=== PATIENT | female | born 1970 | race Caucasian/White ===

== ENCOUNTER 2016-11-04 10:23 | Observation (INO) | payer BC ==
--- NOTE | 2016-11-04 11:06 | ED ---
General Adult HPI - General Source: patient, RN notes reviewed Mode of arrival: wheelchair Limitations: no limitations <Kavon Mina - Last Filed: 11/04/16 11:04> <Louis Downs - Last Filed: 11/04/16 13:04> - General Chief complaint: Chest Pain Stated complaint: chest pain Time Seen by Provider: 11/04/16 10:51 - History of Present Illness Initial comments: Patient is a 46-year-old female who presents emergency room today with chief complaint of chest pain on and off over the last month. Patient does admit that yesterday she was experiencing a "pressure" and today has been experiencing a "stabbing" type pain to the left side of the chest wall underneath the left breast area. 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 States she had an episode of feeling lightheaded dizzy and vomited. States he is not feeling lightheaded or dizzy today. She states she is expressing a stabbing type pain to the left side of the chest wall. Patient also admits to some pain that radiates into the left arm. She states she's had this on and off as well over the last few weeks. Patient denies any history of heart problems. She does admit to a family history. She denies any other complaints or symptoms. Patient denies any recent fever, chills, shortness of breath, back pain, abdominal pain, nausea or vomiting, numbness or tingling, dysuria or hematuria, constipation or diarrhea, visual changes, or any other complaints. (Kavon Mina) - Related Data Home Medications Medication Instructions Recorded Confirmed Aspirin EC [Ecotrin] 325 mg PO DAILY PRN 11/04/16 11/04/16 Calcium/Magnesium/Zinc 1 tab PO DAILY 11/04/16 11/04/16 [Acdisqh-Ghhiteews-Vkdl Tablet] Ibuprofen [Motrin] 800 mg PO Q6H PRN 11/04/16 11/04/16 Levothyroxine Sodium [Synthroid] 125 mcg PO DAILY 11/04/16 11/04/16 Ubidecarenone [Co Q-10] 100 mg PO DAILY 11/04/16 11/04/16 Allergies Allergy/AdvReac Type Severity Reaction Status Date / Time Sulfa (Sulfonamide Allergy Swelling Verified 11/04/16 11:02 Antibiotics) Review of Systems ROS Other: All systems not noted in ROS Statement are negative. <Kavon Mina - Last Filed: 11/04/16 11:04> ROS Other: All systems not noted in ROS Statement are negative. <HimanshuLouis - Last Filed: 11/04/16 13:04> ROS Statement: Those systems with pertinent positive or pertinent negative responses have been documented in the HPI. Past Medical History Past Medical History: GI Bleed, Thyroid Disorder Additional Past Medical History / Comment(s): abdominal discomfort, recent peggy. leg swelling History of Any Multi-Drug Resistant Organisms: None Reported Past Surgical History: Appendectomy, Cholecystectomy, Hysterectomy Additional Past Surgical History / Comment(s): colonoscopy Past Anesthesia/Blood Transfusion Reactions: No Reported Reaction Past Psychological History: No Psychological Hx Reported Smoking Status: Former smoker Past Alcohol Use History: Rare Additional Past Alcohol Use History / Comment(s): smoked 10 years 1/2 ppd, quit 2006 Past Drug Use History: None Reported - Past Family History Mother Family Medical History: No Reported History <Kavon Mina - Last Filed: 11/04/16 11:04> General Exam Limitations: no limitations <Kavon Mina - Last Filed: 11/04/16 11:04> <Louis Downs - Last Filed: 11/04/16 13:04> - General Exam Comments Initial Comments: General: The patient is awake and alert, in no distress, and does not appear acutely ill. Eye: Pupils are equal, round and reactive to light, extra-ocular movements are intact. No nystagmus. There is normal conjunctiva bilaterally. No signs of icterus. Ears, nose, mouth and throat: There are moist mucous membranes and no oral lesions. Neck: The neck is supple, there is no tenderness or JVD. Cardiovascular: There is a regular rate and rhythm. No murmur, rub or gallop is appreciated. Pain reproduced on palpation of the anterior chest wall. Respiratory: Lungs are clear to auscultation, respirations are non-labored, breath sounds are equal. No wheezes, stridor, rales, or rhonchi. Gastrointestinal: Soft, non-distended, non-tender abdomen without masses or organomegaly noted. There is no rebound or guarding present. No CVA tenderness. Bowel sounds are unremarkable. Musculoskeletal: Normal ROM, no tenderness. Strength 5/5. Sensation intact. Pulses equal bilaterally 2+. Neurological: A&O x 3. CN II-XII intact, There are no obvious motor or sensory deficits. Coordination appears grossly intact. Speech is normal. Skin: Skin is warm and dry and no rashes or lesions are noted. Psychiatric: Cooperative, appropriate mood & affect, normal judgment. (Kavon Mina) Medical Decision Making <Kavon Mina - Last Filed: 11/04/16 11:04> - Lab Data Result diagrams: 11/04/16 10:50 11/04/16 10:50 <Louis Downs - Last Filed: 11/04/16 13:04> - Medical Decision Making Medical decision making. I reviewed the patient's history examine the patient. Reviewed the labs which were all within normal limits as well as a chest x- ray. Patient's history goes back one month which is on-again off-again chest discomfort sometimes a sharp pain sometimes a pressure supplies down her left arm. Occasionally nausea vomiting and sweats. EKG was within normal limits. She was given sublingual nitro with some mild relief. The case discussed with Dr. Velazquez patient be admitted to his service with cardiology consultation. Dr. Downs (Louis Downs) - Lab Data Lab Results 11/04/16 11/04/16 11/04/16 Range/Units 10:50 10:50 10:50 WBC 7.1 (3.8-10.6) k/uL RBC 4.56 (3.80-5.40) m/uL Hgb 14.1 (11.4-16.0) gm/dL Hct 42.9 (34.0-46.0) % MCV 94.1 (80.0-100.0) fL MCH 30.9 (25.0-35.0) pg MCHC 32.9 (31.0-37.0) g/dL RDW 13.0 (11.5-15.5) % Plt Count 324 (150-450) k/uL Neutrophils % 68 % Lymphocytes % 22 % Monocytes % 7 % Eosinophils % 2 % Basophils % 1 % Neutrophils # 4.8 (1.3-7.7) k/uL Lymphocytes # 1.5 (1.0-4.8) k/uL Monocytes # 0.5 (0-1.0) k/uL Eosinophils # 0.1 (0-0.7) k/uL Basophils # 0.1 (0-0.2) k/uL PT (9.0-12.0) sec INR (<1.1) APTT (22.0-30.0) sec Sodium 141 (137-145) mmol/L Potassium 4.3 (3.5-5.1) mmol/L Chloride 103 (98-107) mmol/L Carbon Dioxide 27 (22-30) mmol/L Anion Gap 11 mmol/L BUN 11 (7-17) mg/dL Creatinine 0.87 (0.52-1.04) mg/dL Est GFR (MDRD) Af Amer >60 (>60 ml/min/1.73 sqM) Est GFR (MDRD) Non-Af >60 (>60 ml/min/1.73 sqM) Glucose 93 (74-99) mg/dL Calcium 9.6 (8.4-10.2) mg/dL Magnesium 2.0 (1.6-2.3) mg/dL Total Bilirubin 0.5 (0.2-1.3) mg/dL AST 19 (14-36) U/L ALT 30 (9-52) U/L Alkaline Phosphatase 87 (38-126) U/L Total Creatine Kinase 63 (30-135) U/L CK-MB (CK-2) 0.5 (0.0-2.4) ng/mL CK-MB (CK-2) Rel Index 0.8 Troponin I <0.012 (0.000-0.034) ng/mL Total Protein 7.4 (6.3-8.2) g/dL Albumin 4.3 (3.5-5.0) g/dL 11/04/16 Range/Units 10:50 WBC (3.8-10.6) k/uL RBC (3.80-5.40) m/uL Hgb (11.4-16.0) gm/dL Hct (34.0-46.0) % MCV (80.0-100.0) fL MCH (25.0-35.0) pg MCHC (31.0-37.0) g/dL RDW (11.5-15.5) % Plt Count (150-450) k/uL Neutrophils % % Lymphocytes % % Monocytes % % Eosinophils % % Basophils % % Neutrophils # (1.3-7.7) k/uL Lymphocytes # (1.0-4.8) k/uL Monocytes # (0-1.0) k/uL Eosinophils # (0-0.7) k/uL Basophils # (0-0.2) k/uL PT 10.1 (9.0-12.0) sec INR 1.0 (<1.1) APTT 26.4 (22.0-30.0) sec Sodium (137-145) mmol/L Potassium (3.5-5.1) mmol/L Chloride (98-107) mmol/L Carbon Dioxide (22-30) mmol/L Anion Gap mmol/L BUN (7-17) mg/dL Creatinine (0.52-1.04) mg/dL Est GFR (MDRD) Af Amer (>60 ml/min/1.73 sqM) Est GFR (MDRD) Non-Af (>60 ml/min/1.73 sqM) Glucose (74-99) mg/dL Calcium (8.4-10.2) mg/dL Magnesium (1.6-2.3) mg/dL Total Bilirubin (0.2-1.3) mg/dL AST (14-36) U/L ALT (9-52) U/L Alkaline Phosphatase (38-126) U/L Total Creatine Kinase (30-135) U/L CK-MB (CK-2) (0.0-2.4) ng/mL CK-MB (CK-2) Rel Index Troponin I (0.000-0.034) ng/mL Total Protein (6.3-8.2) g/dL Albumin (3.5-5.0) g/dL Disposition <Kavon Mina - Last Filed: 11/04/16 11:04> <Louis Downs - Last Filed: 11/04/16 13:04> Clinical Impression: Unstable angina pectoris Disposition: ADMITTED IP TO THIS [facility] Condition: Stable
[2016-11-04 11:12] LABS: Basophils # (A) 0.1 k/uL (0-0.2); Basophils % (A) 1 %; CH 31.4; CHCM 33.6; Eosinophils # (A) 0.1 k/uL (0-0.7); Eosinophils % (A) 2 %; HCT 42.9 % (34.0-46.0); HDW 2.38; HGB 14.1 gm/dL (11.4-16.0); Luc # (Auto) 0.09; Luc % (Auto) 1; Lymphocytes # (A) 1.5 k/uL (1.0-4.8); Lymphocytes % (A) 22 %; MCH 30.9 pg (25.0-35.0); MCHC 32.9 g/dL (31.0-37.0); MCV 94.1 fL (80.0-100.0); Mean Platelet Volume 7.4; Monocytes # (A) 0.5 k/uL (0-1.0); Monocytes % (A) 7 %; Neutrophils # (A) 4.8 k/uL (1.3-7.7); Neutrophils % (A) 68 %; RBC 4.56 m/uL (3.80-5.40); WBC 7.1 k/uL (3.8-10.6); WBC (Perox) 7.04
[2016-11-04] MEDS: NITROGLYCERIN SL TABS 0.4 MG TAB SUBLINGUAL STA ×3 (11:12→11:47)
[2016-11-04 11:23] LABS: Partial Thromboplastin Time 26.4 sec (22.0-30.0); Prothrombin Time 10.1 sec (9.0-12.0)
[2016-11-04 11:32] LABS: ALT 30 U/L (9-52); AST 19 U/L (14-36); Alkaline Phosphatase 87 U/L (38-126); Anion Gap 11 mmol/L; Blood Urea Nitrogen 11 mg/dL (7-17); Calcium 9.6 mg/dL (8.4-10.2); Carbon Dioxide 27 mmol/L (22-30); Chloride 103 mmol/L (98-107); Glucose 93 mg/dL (74-99); Non-African American GFR(MDRD) >60 (>60 ml/min/1.73 sqM); Potassium 4.3 mmol/L (3.5-5.1); Sodium 141 mmol/L (137-145); Total Bilirubin 0.5 mg/dL (0.2-1.3); Total Protein 7.4 g/dL (6.3-8.2)
[2016-11-04 11:39] LABS: Creatine Kinase 63 U/L (30-135)
[2016-11-04 11:54] LABS: Creatine Kinase MB 0.5 ng/mL (0.0-2.4); Troponin I <0.012 ng/mL (0.000-0.034)
--- NOTE | 2016-11-04 12:04 | XR ---
EXAMINATION TYPE: XR chest 2V DATE OF EXAM: 11/04/2016 11:58 AM HISTORY: Chest pain. REFERENCE: NONE. FINDINGS: There is a gentle levoscoliosis. The lungs are clear. Pleural spaces are clear. IMPRESSION: NO ACUTE INTRATHORACIC ABNORMALITY.
[2016-11-04] MEDS ORDERED: MORPHINE SULFATE 4 MG/ML SYRINGE IV STA (12:52)
[2016-11-04] MEDS ORDERED: ACETAMINOPHEN TAB 325 MG TAB PO PRN (13:05)
[2016-11-04] MEDS ORDERED: HEPARIN SODIUM,PORCINE 5,000 UNIT/ML 1 ML VIAL IV ONE (13:05)
[2016-11-04] MEDS ORDERED: NALOXONE 0.4 MG/ML 1 ML VIAL IV PRN (13:05)
[2016-11-04] MEDS ORDERED: ASPIRIN 325 MG TAB PO PRN (13:11)
[2016-11-04] MEDS ORDERED: HEPARIN SODIUM,PORCINE/D5W PMX 25,000 UNIT in DEXTROSE/WATER 1 500ML.BAG IV SCH (13:15)
[2016-11-04] MEDS: SODIUM CHLORIDE 0.9% 1,000 ML IV SCH (13:28)
[2016-11-04 17:47] LABS: Creatine Kinase 48 U/L (30-135)
[2016-11-04 17:57] LABS: Creatine Kinase MB 0.3 ng/mL (0.0-2.4); Troponin I <0.012 ng/mL (0.000-0.034)
[2016-11-04] MEDS ORDERED: KETOROLAC 30 MG/ML 1 ML VIAL IVP PRN (20:53)
[2016-11-04] MEDS ORDERED: ZOLPIDEM 5 MG TAB PO PRN (20:56)
[2016-11-04] MEDS ORDERED: BISACODYL 5 MG TABLET.DR PO PRN (20:57)
[2016-11-04 23:01] LABS: Creatine Kinase 47 U/L (30-135)
[2016-11-04 23:13] LABS: Creatine Kinase MB 0.3 ng/mL (0.0-2.4); Troponin I <0.012 ng/mL (0.000-0.034)
[2016-11-05] MEDS ORDERED: LEVOTHYROXINE 125 MCG TAB PO SCH (06:30)
[2016-11-05] MEDS ORDERED: PANTOPRAZOLE 40 MG/10 ML VIAL IV SCH (09:00)
--- NOTE | 2016-11-05 11:39 | CONS ---
DATE OF CONSULTATION: This is a 46-year-old who was recently in [place]. When she was driving and she stopped at gas pump and then while she was standing, she got very dizzy and lightheaded but does not remember having any palpitations or any nausea or sweating at that time. This was a couple of weeks back. Subsequently, she had a viral syndrome, viral gastroenteritis. Subsequently, she has had episodes of dizziness. She had 3 episodes last week and one that brought her in. She was very dizzy and lightheaded. Some of these episodes have occurred while she is bending down and then standing up, at other times she is simply standing up. She complains of a sharp chest discomfort and the pumping in the chest, but we have not seen any arrhythmias on the monitor. She has a past history of hypothyroidism. She is not diabetic, she does not have dyslipidemia. She does not have hypertension. There is a family history of coronary artery disease and stroke but not a premature history of either one. The pain that she describes is of a stabbing nature in the left side, under her breast. REVIEW OF SYSTEMS: No fever, chills, rigors. No cough or expectoration. She does have nausea, she felt like throwing up on several occasions during these episodes but not all. No hematuria or dysuria. No strokes or seizures. No skin lesions or musculoskeletal complaints. MEDICATIONS: Aspirin, ibuprofen, levothyroxine, coenzyme Q10. Allergies to SULFA. Past medical history of GI bleeding. She had colonoscopy several months back. She has hypothyroidism. PAST SURGICAL HISTORY: Appendectomy, cholecystectomy, hysterectomy and colonoscopy. SOCIAL HISTORY: She was smoker for about 10 years. She has a 5 pack-year history of smoking. She quit in 2006. On examination, her blood pressure is normal. Her orthostatics are negative. She is afebrile 97.5, pulse rate is in the 70s. Head and neck examination is normal. Heart sounds are normal. Lungs are clear to auscultation. Extremities are warm. No edema. Her labs are reviewed. Cardiac enzymes are normal. Electrolytes are normal. Renal function is normal. Liver function is normal. Lipid panel is pending. TSH is pending. CBC is normal. White count is normal. IMPRESSION: 1. Recurrent episodes of dizziness and presyncope and a sensation of pounding and stabbing in the chest but also sometimes with Associates nausea and sweating. She had a recent viral infection. 2. No history of diabetes or hypertension and dyslipidemia. 3. Past history of smoking. Five pack-year history of smoking. She stopped in 2006. 4. Hypothyroidism, on replacement therapy. My impression is that she probably has vasovagal episodes. I do not see any arrhythmias. I do not see any PVCs. This could explain her pounding in the chest. I will schedule her for a tilt-table test. From a cardiac standpoint, she may go home and I will see her in the office once again. She has no major risk factors for coronary artery disease other than possibly perimenopausal state and her remote history of smoking for 10 years.
[2016-11-05] MEDS ORDERED: IV FLUID CONTINUATION 200 ML IV ONE (11:46)
[2016-11-05] MEDS ORDERED: CALCIUM CARB-MAG CARB-FOLIC 1 EACH TAB PO SCH (12:00)
[2016-11-05] MEDS ORDERED: SODIUM CHLORIDE 0.9% 1,000 ML IV ONE (12:18)
[2016-11-05] MEDS: SODIUM CHLORIDE 0.9% 1,000 ML IV SCH ×2 (13:04→16:24)
[2016-11-05 13:32] VITALS: BP 114/75; PULSE 64; RESP 18; TEMP 97.4
--- NOTE | 2016-11-05 15:00 | P.PCN ---
Preoperative Diagnosis: Tilt table test report Indication: Recurrent presyncopal spells, palpitations and stabbing pain Procedure Baseline blood pressure 117/77 mmHg. Heart rate 62 beats a minute sinus rhythm Patient was tilted upright at an angle of 70 per protocol Within 7 minutes the patient felt nauseous heart sweaty dizzy and became syncopal. Lowest blood pressure on nexfin Was 48 mmHg . She was complaining of chest pressure 4 out of 10. When she was laid supine her blood pressure normalized and she felt a lot better after 5-10 minutes. Impression Neurocardiogenic response to upright tilting
--- NOTE | 2016-11-05 15:22 | P.HPIM ---
History of Present Illness H&P Date: 11/05/16 (Patient evaluated at 10 AM) Chief Complaint: Chest discomfort This is a medical H&P and discharge summary combined: Patient is a 46-year-old female, patient of Dr. Bajwa in the outpatient setting, with medical history significant for hypothyroidism, diverticular disease, and history of nicotine dependence. Patient presented to the emergency department with complaints of chest pain on and off over the last month described as pressure and stabbing to the left side of her chest and under her left breast. Patient reports several episodes of dizziness in last month associated with lightheadedness and vomiting. Chest x-ray with no acute cardiopulmonary process. EKG normal sinus rhythm. Troponin less than 0.012. Cholesterol 62. TSH 0.332. Free T4 1.62. Patient was seen and evaluated by Dr. Villarreal from cardiology service who suspected patient probably was experiencing vasovagal episodes. Patient was scheduled for a tilt table test, which was positive. Past Medical History Past Medical History: GI Bleed, Thyroid Disorder Additional Past Medical History / Comment(s): abdominal discomfort, IN NOV BOOD IN STOOL HAD A COLONOSCOPY PT STATED FOUND SOME DIVERTICUALR DISEASE,UTI, HYPOTHYROID History of Any Multi-Drug Resistant Organisms: None Reported Past Surgical History: Appendectomy, Cholecystectomy, Hysterectomy Additional Past Surgical History / Comment(s): colonoscopy Past Anesthesia/Blood Transfusion Reactions: Motion Sickness Past Psychological History: No Psychological Hx Reported Smoking Status: Former smoker Past Alcohol Use History: Rare Additional Past Alcohol Use History / Comment(s): smoked 10 years 1/2 ppd, quit 2006 Past Drug Use History: None Reported - Past Family History Mother Family Medical History: Cancer, CVA/TIA, Diabetes Mellitus, Hyperlipidemia, Hypertension Additional Family Medical History / Comment(s): 2 STROKES,CATARCTS,"IRREG HEART BEAT", "FEMALE CANCER" HAD TOTAL HYSTERECTOMY AGE 37 Father Family Medical History: Diabetes Mellitus, Hypertension, Myocardial Infarction ( [place]) Medications and Allergies Home Medications Medication Instructions Recorded Confirmed Type Aspirin EC [Ecotrin] 325 mg PO DAILY PRN 11/04/16 11/04/16 History Calcium/Magnesium/Zinc 1 tab PO DAILY 11/04/16 11/04/16 History [Ttwfzrg-Jqlyxmtxv-Jahv Tablet] Ibuprofen [Motrin] 800 mg PO Q6H PRN 11/04/16 11/04/16 History Levothyroxine Sodium [Synthroid] 125 mcg PO DAILY 11/04/16 11/04/16 History Ubidecarenone [Co Q-10] 100 mg PO DAILY 11/04/16 11/04/16 History Allergies Allergy/AdvReac Type Severity Reaction Status Date / Time Sulfa (Sulfonamide Allergy Swelling Verified 11/04/16 11:02 Antibiotics) Physical Exam Vitals: Vital Signs Temp Pulse Pulse Pulse Resp BP BP 11/05/16 13:00 97.4 F L 64 18 11/05/16 11:56 98.9 F 72 16 11/05/16 10:45 77 137/87 11/05/16 10:40 71 126/81 11/05/16 10:35 71 11/05/16 08:00 97.5 F L 75 16 11/05/16 04:00 64 16 11/05/16 00:00 62 16 11/04/16 23:33 63 16 11/04/16 20:00 85 16 11/04/16 19:47 97.8 F 78 16 11/04/16 15:34 98.5 F 73 18 BP BP BP Pulse Ox 11/05/16 13:00 114/75 97 11/05/16 11:56 106/64 98 11/05/16 10:45 11/05/16 10:40 11/05/16 10:35 126/81 11/05/16 08:00 116/70 95 11/05/16 04:00 117/63 97 11/05/16 00:00 110/68 98 11/04/16 23:33 11/04/16 20:00 11/04/16 19:47 107/65 92 L 11/04/16 15:34 112/71 Intake and Output 11/05/16 11/05/16 11/05/16 06:59 14:59 22:59 Intake Total 350 Balance 350 Intake: IV 250 Oral 100 Other: # Voids 2 Weight 80.2 kg GENERAL: Pt awake and alert, well-appearing, well-nourished, and in no acute distress. HEAD: Atraumatic, normocephalic. EYES: Pupils equal, round, and reactive to light, extraocular movements intact, sclera anicteric, conjunctiva are normal. ENT: Oropharynx clear without exudates. Moist mucous membranes. Tongue smooth, pink, no lesions, protrudes in midline. NECK:Normal range of motion, supple without lymphadenopathy or JVD. No carotid bruits. Thyroid midline, small and firm without palpable masses. LUNGS: Breath sounds clear to auscultation bilaterally. No wheezes, rales, or rhonchi. HEART: Heart S1, S2, no S3 or S4. Regular rate and rhythm. No murmurs, rubs or gallops. ABDOMEN: Soft, obesity, nontender, nondistended, normoactive bowel sounds. No guarding, no rebound. No masses or organomegaly appreciated. EXTREMITIES: 2+ peripheral pulses. Trace edema to bilateral lower extremities. NEUROLOGICAL: Pt oriented x 3. Cranial nerves II through XII grossly intact. Strength and sensation grossly intact. PSYCH: Normal mood, normal affect. SKIN: Warm, dry, intact. Normal turgor. No rashes or lesions. Results CBC & Chem 7: 11/04/16 10:50 11/04/16 10:50 Labs: Abnormal Lab Results - Last 24 Hours (Table) 11/04/16 11/05/16 11/05/16 Range/Units 19:44 07:21 07:21 APTT 52.3 H 42.1 H (22.0-30.0) sec D-Dimer (<0.60) mg/L FEU HDL Cholesterol 62 H (40-60) mg/dL TSH 0.332 L (0.465-4.680) mIU/L 11/05/16 Range/Units 13:21 APTT (22.0-30.0) sec D-Dimer 0.63 H (<0.60) mg/L FEU HDL Cholesterol (40-60) mg/dL TSH (0.465-4.680) mIU/L Chest x-ray: report reviewed Thrombosis Risk Factor Assmnt - Choose All That Apply Any of the Below Risk Factors Present?: Yes Each Factor Represents 1 point: Age 41-60 years, Obesity (BMI >25) Other Risk Factors: No Other congenital or acquired thrombophilia - If yes, enter type in comment: No Thrombosis Risk Factor Assessment Total Risk Factor Score: 2 Thrombosis Risk Factor Assessment Level: Low Risk Assessment and Plan Plan: Impression: 1. Chest discomfort, present on admission associated with episodes of dizziness , lightheadedness, and nausea. Tilt table test positive suggesting vasovagal syncope. 2. History of hypothyroidism on replacement therapy. TSH 0.332, free T4 1 0.62. 3. History of diverticular disease. 4. History of nicotine dependence. Plan: From a medical standpoint, patient is stable for discharge. Patient will follow -up with Dr. Velazquez in the outpatient setting. The above impression and plan have been discussed and directed by Dr. Velazquez. Manuel ADAMS acting as scribe for Dr. Velazquez.
== END 2016-11-05 16:40 | disposition home or self-care (01) ==
LOC: EC 10:23 → 3OBS 13:11
PROVIDERS: ADMIT Family Medicine; ATTEND Family Medicine
DX: R55 Syncope and collapse (principal); R42 Dizziness and giddiness; R07.9 Chest pain, unspecified; E03.9 Hypothyroidism, unspecified; Z87.891 Personal history of nicotine dependence; Z82.3 Family history of stroke; Z82.49 Family history of ischemic heart disease and other diseases of the circulatory system; Z83.3 Family history of diabetes mellitus; Z79.1 Long term (current) use of non-steroidal anti-inflammatories (NSAID); Z79.82 Long term (current) use of aspirin; Z79.899 Other long term (current) drug therapy; Z88.2 Allergy status to sulfonamides; R11.0 Nausea
CPT/HCPCS: 36415; 93005; 93660; 85379; 84439; 80061; 80053; 84443; 82550; 82553; 83735; 84484; 85025; 85610; 85730 ×2; 71020; 99285; 96365; 96376; 96375; G0378 ×2; J2270; J1644 ×2; J1885; 96361; 96366

== ENCOUNTER → 2017-10-01 | Outpatient (CLI) | payer BC ==
--- NOTE | 2017-10-01 08:35 | CT ---
EXAMINATION TYPE: CT brain wo con DATE OF EXAM: 10/01/2017 COMPARISON: 08/18/2013 HISTORY: Blurred vision, left mastoid pain, and hearing loss. CT DLP: 1036 mGycm. Automated Exposure Control for Dose Reduction was Utilized. TECHNIQUE: CT scan of the head is performed without contrast. FINDINGS: There is no acute intracranial hemorrhage, mass effect, or midline shift identified. The ventricles and sulci are within normal limits in size. The globes are intact and lenses are in plac e. No suspicious extra-axial fluid collection. No cerebellar pontine angle mass. With attention to the left mastoid air cells there is no remarkable abnormality. The left mastoid air cells are well aerated. There is no middle ear cavity fluid surrounding the left ossicles. The exter nal auditory canal is patent. Similarly the right mastoid air cells are patent. The visualized parana corey sinuses are well aerated without mucosal thickening or polyp. IMPRESSION: 1. No acute intracranial hemorrhage, mass effect, or midline shift is seen. 2. No evidence of paranasal sinus disease or mastoiditis. No middle ear cavity fluid or occlusion of the external auditory canals. If symptoms persist MR could be performed for further evaluation.
== END | disposition home or self-care (01) ==
LOC: RADCTMAIN 07:25
PROVIDERS: ATTEND Family Medicine
DX: R55 Syncope and collapse (principal); R51 Headache
CPT/HCPCS: 70450

== ENCOUNTER → 2018-03-04 | Outpatient (CLI) | payer BC ==
--- NOTE | 2018-03-04 16:22 | CT ---
EXAMINATION TYPE: CT abdomen pelvis wo/w con DATE OF EXAM: 03/04/2018 HISTORY: Right lower quadrant pain x [address] DLP: 2103mGycm Automated Exposure Control for Dose Reduction was Utilized. CONTRAST: CT scan of the abdomen and pelvis is performed with oral and without and with IV Contrast, patient in jected with 100 mL of Isovue M300. COMPARISON: CT abdomen pelvis May 05, 2012 FINDINGS: LUNG BASES: No significant abnormality is appreciated. LIVER/GB: Cholecystectomy clips are redemonstrated. PANCREAS: No significant abnormality is seen. SPLEEN: No significant abnormality is seen. ADRENALS: No significant abnormality is seen. KIDNEYS: No renal calculi are seen on noncontrast images. BOWEL: Clips from appendectomy are noted at base of cecum. Oral contrast does not reach terminal ilea l level making evaluation of distal bowel suboptimal. There is no suspicious small or large bowel dil atation. There is mild fat stranding and mild to moderate wall thickening and proximal sigmoid colon in the left upper to mid pelvis near axial image 63 suspicious for a early or mild colitis at this le lorri. Clinical correlation advised. Differential includes infectious and inflammatory etiologies. Ther e is occasional diverticula in the colon UTERUS/ADNEXA: Uterus is surgically absent or markedly atrophic in appearance. LYMPH NODES: No greater than 1cm abdominal or pelvic lymph nodes are appreciated. OSSEOUS STRUCTURES: Mild multilevel anterior spurring in the lumbar spine is present. OTHER: No significant additional abnormality is seen. IMPRESSION: Suspect mild or early acute colitis proximal sigmoid colon level in the left upper pelvis . Differential includes infectious and inflammatory etiologies. Correlate clinically.
== END | disposition home or self-care (01) ==
LOC: RADCTMAIN 13:42
PROVIDERS: ATTEND Family Medicine
DX: R10.84 Generalized abdominal pain (principal); R10.13 Epigastric pain; Z88.2 Allergy status to sulfonamides
CPT/HCPCS: 74178; Q9967

== ENCOUNTER → 2019-09-29 | Outpatient (CLI) | payer BC ==
--- NOTE | 2019-09-29 14:39 | XR ---
EXAMINATION TYPE: XR Hip Complete LT DATE OF EXAM: 09/29/2019 CLINICAL HISTORY: pain TECHNIQUE: AP and frogleg views of the left hip are obtained. COMPARISON: None. FINDINGS: There is no acute fracture/dislocation evident. The joint space appears within normal li mits. The overlying soft tissue appears unremarkable. IMPRESSION: 1. There is no acute fracture or dislocation.ICD 10 NO FRACTURE, INITIAL EVALUATION
== END | disposition home or self-care (01) ==
LOC: RADXRMAIN 13:55
PROVIDERS: ATTEND Family Medicine
DX: M25.552 Pain in left hip (principal)
CPT/HCPCS: 73502

== ENCOUNTER 2020-09-11 18:59 | Emergency (ER) | payer BC ==
[2020-09-11] MEDS ORDERED: ASPIRIN 81 MG PO STA (19:26)
--- NOTE | 2020-09-11 19:26 | ED ---
Chest Pain HPI - General Chief Complaint: Chest Pain Stated Complaint: Chest Pressure/arm numbness Time Seen by Provider: 09/11/20 19:22 Source: patient Mode of arrival: wheelchair Limitations: no limitations - History of Present Illness Initial Comments: 50-year-old female presenting to the emergency room with a chief complaint of chest pain. Patient reports she has been having intermittent chest pains for the last month. States that typically started off as a sharp pain in transitioned into a chest pressure. She states this is exacerbated on exertion. She reports the pain is also going into her left shoulder and arm and the pain is only sharp. However, particularly over the last week she has developed continuous symptoms. She also reports associated shortness of breath and dyspnea on exertion. She also has had dizziness where the room was spinning around her along with nausea but no vomiting. States that she was evaluated approximately 3 years ago in emergency department and had a cardiac evaluation along with an echocardiogram and stress test which were unremarkable. States she had a table tilt test which was positive. States she is a former smoker but has not smoked in 13 years. No history of hypertension, hyperlipidemia, diabetes. Does have positive family history of CAD. - Related Data Home Medications Medication Instructions Recorded Confirmed Aspirin EC [Ecotrin] 325 mg PO DAILY PRN 11/04/16 11/04/16 Calcium/Magnesium/Zinc 1 tab PO DAILY 11/04/16 11/04/16 [Pmkkywp-Sjmhhugxy-Rzyv Tablet] Ibuprofen [Motrin] 800 mg PO Q6H PRN 11/04/16 11/04/16 Levothyroxine Sodium [Synthroid] 125 mcg PO DAILY 11/04/16 11/04/16 Ubidecarenone [Co Q-10] 100 mg PO DAILY 11/04/16 11/04/16 Allergies Allergy/AdvReac Type Severity Reaction Status Date / Time Sulfa (Sulfonamide Allergy Swelling Verified 11/04/16 11:02 Antibiotics) Review of Systems ROS Statement: Those systems with pertinent positive or pertinent negative responses have been documented in the HPI. ROS Other: All systems not noted in ROS Statement are negative. EKG Findings - EKG Comments: EKG Findings:: Sinus rhythm. Ventricular rate 78, NM 186, QRS 82, QTC 437. Past Medical History Past Medical History: GI Bleed, Thyroid Disorder Additional Past Medical History / Comment(s): abdominal discomfort, IN NOV BOOD IN STOOL HAD A COLONOSCOPY PT STATED FOUND SOME DIVERTICUALR DISEASE,UTI,HYPOTHYROID History of Any Multi-Drug Resistant Organisms: None Reported Past Surgical History: Appendectomy, Cholecystectomy, Hysterectomy Additional Past Surgical History / Comment(s): colonoscopy Past Anesthesia/Blood Transfusion Reactions: Motion Sickness Past Psychological History: No Psychological Hx Reported Smoking Status: Former smoker Past Alcohol Use History: Rare Past Drug Use History: None Reported - Past Family History Mother Family Medical History: Cancer, CVA/TIA, Diabetes Mellitus, Hyperlipidemia, Hypertension Additional Family Medical History / Comment(s): 2 STROKES,CATARCTS,"IRREG HEART BEAT", "FEMALE CANCER" HAD TOTAL HYSTERECTOMY AGE 37 Father Family Medical History: Diabetes Mellitus, Hypertension, Myocardial Infarction ([place]) General Exam Limitations: no limitations General appearance: alert, in no apparent distress, obese Head exam: Present: atraumatic, normocephalic, normal inspection Eye exam: Present: normal appearance, PERRL, EOMI Pupils: Present: normal accommodation ENT exam: Present: normal exam, normal oropharynx, mucous membranes moist, TM's normal bilaterally, normal external ear exam Neck exam: Present: normal inspection, full ROM. Absent: tenderness Respiratory exam: Present: normal lung sounds bilaterally. Absent: respiratory distress, wheezes, rales, rhonchi, stridor, chest wall tenderness, accessory muscle use Cardiovascular Exam: Present: regular rate, normal rhythm, normal heart sounds. Absent: systolic murmur GI/Abdominal exam: Present: soft. Absent: distended, tenderness, guarding, rebound Extremities exam: Present: normal inspection, full ROM, normal capillary refill, other (+2 bilateral radial pulses. +2 dorsalis pedis and posterior tibials bilateral.). Absent: tenderness, pedal edema, joint swelling, calf tenderness Back exam: Present: normal inspection, full ROM. Absent: tenderness, CVA tenderness (R), CVA tenderness (L), muscle spasm, paraspinal tenderness, vertebral tenderness Neurological exam: Present: alert, oriented X3, normal gait Expanded Patient oriented to: Present: person, place, time Speech: Present: fluid speech Cranial nerves: EOM's Intact: Normal, Tongue Deviation: Normal, Nystagmus: Normal, Facial Sensation: Normal Upper motor neuron: Pronator Drift: Normal Sensory exam: Upper Extremity Light Touch: Normal, Lower Extremity Light Touch: Normal Motor strength exam: RUE: 5, LUE: 5, RLE: 5, LLE: 5 DTR: Bicep (R): 4+, Bicep (L): 4+, Achilles Tendon (R): 4+, Achilles Tendon (L): 4+ Psychiatric exam: Present: normal affect, normal mood Skin exam: Present: warm, dry, intact, normal color Course Vital Signs 09/11/20 09/11/20 09/11/20 19:04 21:00 22:45 Temperature 98.6 F 98.3 F Pulse Rate 84 72 83 Respiratory 18 18 18 Rate Blood Pressure 134/87 126/76 119/90 O2 Sat by Pulse 100 98 99 Oximetry 09/12/20 00:14 Temperature 98.1 F Pulse Rate 74 Respiratory 19 Rate Blood Pressure 126/85 O2 Sat by Pulse 99 Oximetry Chest Pain MDM - MDM 50-year-old female presenting to emergency Department with a chief complaint of chest pain. Physical examination is unremarkable. Patient was given aspirin and nitro with no significant relief. EKG showing sinus rhythm. Initial troponins are negative. Chest x-ray is unremarkable. CBC reveals mild leukocyt osis at 10.7 K. Patient had coags within normal limits. Elevated d-dimer and 1.07. CT chest angiogram shows no signs of PE but does reveal mild infiltrates. Rapid covid negative. Case was discussed with who spoke with dr cantor who advised a second troponin and discharge because the patient has a probability of loly Covid while in the observation unit. I spoke with the patient and gave her the option of either being admitted for cardiac observation or being discharged after having a second troponin. Patient decided she wants to be discharged and will follow up with cardiology in an outpatient setting. Secondary troponin negative. Strict return parameters were thoroughly discussed with patient is understanding and agreeable. Case discussed with physician. Disposition Clinical Impression: Chest pain, Shortness of breath Disposition: HOME SELF-CARE Condition: Stable Instructions (If sedation given, give patient instructions): Chest Pain (ED) Additional Instructions: Follow-up with cardiology. Return to emergency department if symptoms worsen. Is patient prescribed a controlled substance at d/c from ED?: No Referrals: Mick Bajwa Jr, DO [Primary Care Provider] - 1-2 days Jose Vidal MD [STAFF PHYSICIAN] - 1-2 days Time of Disposition: 21:41
[2020-09-11 20:07] LABS: Basophils # (A) 0.2 k/uL (0-0.2); Basophils % (A) 1 %; Eosinophils # (A) 0.2 k/uL (0-0.7); Eosinophils % (A) 2 %; HGB 14.3 gm/dL (11.4-16.0); Lymphocytes # (A) 2.4 k/uL (1.0-4.8); Lymphocytes % (A) 22 %; MCH 31.8 pg (25.0-35.0); MCHC 34.1 g/dL (31.0-37.0); MCV 93.3 fL (80.0-100.0); Monocytes # (A) 0.7 k/uL (0-1.0); Monocytes % (A) 7 %; Neutrophils # (A) 7.1 k/uL (1.3-7.7); Neutrophils % (A) 67 %; Platelet Count 327 k/uL (150-450); RDW 12.7 % (11.5-15.5); WBC 10.7 k/uL (3.8-10.6)
[2020-09-11] MEDS ORDERED: NITROGLYCERIN SL TABS 0.4 MG TAB SUBLINGUAL PRN ×2 (20:09→21:37)
[2020-09-11 20:16] LABS: ALT 15 U/L (4-34); AST 21 U/L (14-36); African American GFR (CKD) >90 (>60 ml/min/1.73 sqM); Albumin 4.3 g/dL (3.5-5.0); Alkaline Phosphatase 74 U/L (38-126); Anion Gap 8 mmol/L; Blood Urea Nitrogen 13 mg/dL (7-17); Calcium 9.5 mg/dL (8.4-10.2); Carbon Dioxide 26 mmol/L (22-30); Chloride 105 mmol/L (98-107); Glucose 90 mg/dL (74-99); Magnesium 2.2 mg/dL (1.6-2.3); Non-African American GFR(CKD) >90 (>60 ml/min/1.73 sqM); Potassium 3.9 mmol/L (3.5-5.1); Sodium 139 mmol/L (137-145); Total Bilirubin 0.5 mg/dL (0.2-1.3); Total Protein 7.3 g/dL (6.3-8.2)
[2020-09-11 20:22] LABS: INR 0.9 (<1.2); Partial Thromboplastin Time 26.1 sec (22.0-30.0); Prothrombin Time 9.7 sec (9.0-12.0)
--- NOTE | 2020-09-11 20:25 | XR ---
EXAMINATION TYPE: XR chest 2V DATE OF EXAM: 09/11/2020 COMPARISON: 117 HISTORY: Chest pain TECHNIQUE: 2 views FINDINGS: Heart and mediastinum are normal. Lungs are clear. Diaphragm is normal. Bony thorax appears normal. IMPRESSION: Normal chest. No change.
[2020-09-11 20:26] LABS: D-Dimer 1.05 mg/L FEU (<0.60)
--- NOTE | 2020-09-11 21:11 | CT ---
EXAMINATION TYPE: CT chest angio for PE DATE OF EXAM: 09/11/2020 COMPARISON: None HISTORY: Chest tightness, LT arm numbness. Pt denies cardiac hx. CT DLP: 336.4 mGycm Automated exposure control for dose reduction was used. CONTRAST: Performed with IV Contrast, patient injected with 100 mL of Isovue 370. There are 3-D post processed images. There is mild pulmonary interstitial edema. There is no mediastinal adenopathy. There are no hilar ma sses. Ascending aorta measures 3.5 cm. There is no aneurysm or dissection. Heart size is normal. There is no pericardial effusion. There is no pleural effusion. There is no isidro dence of a pulmonary mass. Thoracic spine is intact. There is no compression fracture. Sternum is intact. There is normal contrast opacification of the pulmonary arteries. There are no filling defects. Upper abdominal soft tissues are intact. IMPRESSION: No evidence of pulmonary embolism. Mild pulmonary interstitial infiltrate.
[2020-09-11] MEDS ORDERED: KETOROLAC 15 MG/ML 1 ML VIAL IVP STA (22:58)
[2020-09-12 00:17] VITALS: BP 126/85; PULSE 74; RESP 19; TEMP 98.1
[2020-09-12] MEDS ORDERED: ASPIRIN 325 MG TAB PO SCH (09:00)
== END 2020-09-12 00:14 | disposition home or self-care (01) ==
LOC: EC 18:59
DX: R07.9 Chest pain, unspecified (principal); R06.02 Shortness of breath; R79.89 Other specified abnormal findings of blood chemistry; D72.829 Elevated white blood cell count, unspecified; R91.8 Other nonspecific abnormal finding of lung field; E03.9 Hypothyroidism, unspecified; Z79.899 Other long term (current) drug therapy; Z79.890 Hormone replacement therapy; Z88.2 Allergy status to sulfonamides; Z87.891 Personal history of nicotine dependence; Z20.828 Contact with and (suspected) exposure to other viral communicable diseases
CPT/HCPCS: 36415; 93005; 85379; 80053; 83735; 84484; 85025; 85610; 85730; 87635; 71046; 71275; 99285; 96374; J1885

== ENCOUNTER → 2020-09-13 | Outpatient (CLI) | payer BC ==
--- NOTE | 2020-09-19 12:22 | P.ARTDOP ---
Arterial Doppler Bilateral upper extremity arterial Doppler. Reason for study: Left arm pain Date of study: 09/13/2020 Findings: There are normal triphasic signals bilaterally throughout. There are no significant right to left or segmental pressure gradients. Impression: Normal study
== END | disposition home or self-care (01) ==
LOC: RADUSWWP 12:35
PROVIDERS: ATTEND Family Medicine
DX: M79.622 Pain in left upper arm (principal); Z88.2 Allergy status to sulfonamides
CPT/HCPCS: 93922

== ENCOUNTER 2020-09-17 17:34 | Observation (INO) | payer BC ==
--- NOTE | 2020-09-17 18:26 | ED ---
Chest Pain HPI - General Chief Complaint: Chest Pain Stated Complaint: Chest Pain Time Seen by Provider: 09/17/20 17:45 Source: patient, RN notes reviewed Mode of arrival: ambulatory Limitations: no limitations - History of Present Illness Initial Comments: This is a 52-year-old female who presents with complaints of chest pain going on for about a month discussed bad over last 3 weeks. Possibly. She currently is pain-free but she points her left chest and states is been going to her left arm. Nothing seems to make it better nothing seems to make it worse. No prior history of heart disease. No fevers chills nausea vomiting sweats as breath other symptoms. No other modifying factors at this time she was seen here on the ninth of this month a workup was done which included ruling out a pulmonary and wasn't due to an elevated d-dimer. MD Complaint: chest pain - Related Data Home Medications Medication Instructions Recorded Confirmed Aspirin EC [Ecotrin] 325 mg PO DAILY PRN 11/04/16 11/04/16 Calcium/Magnesium/Zinc 1 tab PO DAILY 11/04/16 11/04/16 [Aeorfgr-Yheugrdnv-Oprj Tablet] Ibuprofen [Motrin] 800 mg PO Q6H PRN 11/04/16 11/04/16 Levothyroxine Sodium [Synthroid] 125 mcg PO DAILY 11/04/16 11/04/16 Ubidecarenone [Co Q-10] 100 mg PO DAILY 11/04/16 11/04/16 Allergies Allergy/AdvReac Type Severity Reaction Status Date / Time Sulfa (Sulfonamide Allergy Swelling Verified 09/17/20 17:41 Antibiotics) Review of Systems ROS Statement: Those systems with pertinent positive or pertinent negative responses have been documented in the HPI. ROS Other: All systems not noted in ROS Statement are negative. EKG Findings - EKG Results: EKG: interpreted by JOSH, sinus rhythm (Neuro sinus rhythm a 73 PA interval 194 QRS duration 84 QT since QTC 374/412 to QA changes seen at this time) Past Medical History Past Medical History: GI Bleed, Thyroid Disorder Additional Past Medical History / Comment(s): abdominal discomfort, IN NOV BOOD IN STOOL HAD A COLONOSCOPY PT STATED FOUND SOME DIVERTICUALR DISEASE,UTI,HYPOTHYROID History of Any Multi-Drug Resistant Organisms: None Reported Past Surgical History: Appendectomy, Cholecystectomy, Hysterectomy Additional Past Surgical History / Comment(s): colonoscopy Past Anesthesia/Blood Transfusion Reactions: Motion Sickness Past Psychological History: No Psychological Hx Reported Smoking Status: Former smoker Past Alcohol Use History: Rare Past Drug Use History: None Reported - Past Family History Mother Family Medical History: Cancer, CVA/TIA, Diabetes Mellitus, Hyperlipidemia, Hypertension Additional Family Medical History / Comment(s): 2 STROKES,CATARCTS,"IRREG HEART BEAT", "FEMALE CANCER" HAD TOTAL HYSTERECTOMY AGE 37 Father Family Medical History: Diabetes Mellitus, Hypertension, Myocardial Infarction ([place]) General Exam - General Exam Comments Initial Comments: This a well-developed well-nourished awake alert oriented 3 female Limitations: no limitations General appearance: alert, anxious Head exam: Present: atraumatic, normocephalic, normal inspection Eye exam: Present: normal appearance, PERRL, EOMI. Absent: scleral icterus, conjunctival injection, periorbital swelling ENT exam: Present: normal exam, mucous membranes moist Neck exam: Present: normal inspection. Absent: tenderness, meningismus, lymphadenopathy Respiratory exam: Present: normal lung sounds bilaterally. Absent: respiratory distress, wheezes, rales, rhonchi, stridor Cardiovascular Exam: Present: regular rate, normal rhythm, normal heart sounds. Absent: systolic murmur, diastolic murmur, rubs, gallop, clicks GI/Abdominal exam: Present: soft, normal bowel sounds. Absent: distended, tenderness, guarding, rebound, rigid Extremities exam: Present: normal inspection, full ROM, normal capillary refill. Absent: tenderness, pedal edema, joint swelling, calf tenderness Back exam: Present: normal inspection Neurological exam: Present: alert, oriented X3, CN II-XII intact Psychiatric exam: Present: normal affect, normal mood Skin exam: Present: warm, dry, intact, normal color. Absent: rash Course Vital Signs 09/17/20 17:38 Temperature 98.0 F Pulse Rate 79 Respiratory 16 Rate Blood Pressure 153/92 O2 Sat by Pulse 98 Oximetry Chest Pain MDM - MDM I did discuss the findings with the patient and with Dr. Asher patient be admitted with consultation by Dr. Lee. Disposition Clinical Impression: Chest pain Disposition: ADMITTED IP TO THIS [facility] Condition: Stable Referrals: Mick Bajwa Jr, [Primary Care Provider] - 1-2 days
[2020-09-17 18:29] LABS: Basophils # (A) 0.1 k/uL (0-0.2); Basophils % (A) 2 %; Eosinophils # (A) 0.1 k/uL (0-0.7); Eosinophils % (A) 1 %; HGB 14.8 gm/dL (11.4-16.0); Lymphocytes # (A) 2.1 k/uL (1.0-4.8); Lymphocytes % (A) 24 %; MCH 31.6 pg (25.0-35.0); MCHC 33.6 g/dL (31.0-37.0); MCV 93.9 fL (80.0-100.0); Mean Platelet Volume 7.3; Monocytes # (A) 0.4 k/uL (0-1.0); Monocytes % (A) 5 %; Neutrophils # (A) 5.9 k/uL (1.3-7.7); Neutrophils % (A) 67 %; Platelet Count 351 k/uL (150-450); RBC 4.69 m/uL (3.80-5.40); RDW 12.5 % (11.5-15.5); WBC 8.8 k/uL (3.8-10.6)
[2020-09-17 18:33] LABS: ALT 17 U/L (4-34); AST 22 U/L (14-36); African American GFR (CKD) >90 (>60 ml/min/1.73 sqM); Albumin 4.7 g/dL (3.5-5.0); Alkaline Phosphatase 75 U/L (38-126); Anion Gap 8 mmol/L; Blood Urea Nitrogen 12 mg/dL (7-17); Carbon Dioxide 27 mmol/L (22-30); Chloride 103 mmol/L (98-107); Creatine Kinase 65 U/L (30-135); Glucose 145 mg/dL (74-99); Non-African American GFR(CKD) 90 (>60 ml/min/1.73 sqM); Potassium 3.7 mmol/L (3.5-5.1); Sodium 138 mmol/L (137-145); Total Bilirubin 0.4 mg/dL (0.2-1.3); Total Protein 7.8 g/dL (6.3-8.2)
[2020-09-17] MEDS ORDERED: NITROGLYCERIN SL TABS 0.4 MG TAB SUBLINGUAL PRN (18:34)
[2020-09-17] MEDS ORDERED: HEPARIN SODIUM,PORCINE 5,000 UNIT/ML 1 ML VIAL IV ONE (18:34)
[2020-09-17 18:38] LABS: Partial Thromboplastin Time 26.3 sec (22.0-30.0)
[2020-09-17] MEDS ORDERED: HEPARIN SOD,PORK IN 0.45% NACL 25,000 UNIT in 0.45% NACL 1 250ML.BAG IV SCH (18:45)
[2020-09-17] MEDS: SODIUM CHLORIDE 0.9% 1,000 ML IV SCH (19:00)
--- NOTE | 2020-09-17 19:20 | XR ---
EXAMINATION TYPE: XR chest 2V DATE OF EXAM: 09/17/2020 COMPARISON: Chest x-ray and CTA chest 6 days ago HISTORY: Chest pain for one month. TECHNIQUE: Frontal and lateral views of the chest are obtained. FINDINGS: Overlying EKG leads on current study. There is no focal air space opacity, pleural effusion , or pneumothorax seen. The cardiac silhouette size remains within normal limits. The osseous stru ctures are intact. IMPRESSION: No acute cardiopulmonary process. No significant change from recent prior studies.
[2020-09-18 00:25] VITALS: RESP 16
[2020-09-18 01:52] LABS: Cholesterol 193 mg/dL (<200); HDL Cholesterol 67 mg/dL (40-60); LDL Cholesterol,Calculated 106 mg/dL (0-99); Triglycerides 101 mg/dL (<150)
[2020-09-18] MEDS ORDERED: LEVOTHYROXINE 125 MCG TAB PO SCH (06:30)
[2020-09-18] MEDS: SODIUM CHLORIDE 0.9% 1,000 ML IV SCH (06:45)
[2020-09-18 08:04] VITALS: PULSE 70
[2020-09-18] MEDS ORDERED: ALPRAZolam 0.5 MG TAB PO PRN (08:24)
[2020-09-18] MEDS ORDERED: SODIUM CHLORIDE 0.9% 1,000 ML in EMPTY BAG 1 BAG IV ONE (08:24)
[2020-09-18] MEDS ORDERED: ALPRAZolam 0.25 MG TAB PO PRN (08:24)
[2020-09-18] MEDS ORDERED: ATORVASTATIN 80 MG TAB PO STA (08:24)
[2020-09-18] MEDS ORDERED: LIDOCAINE 1% INJ 10MG/ML (20 ML MDV) ONE (08:50)
[2020-09-18] MEDS ORDERED: NON FORMULARY DRUG (Calcium/Magnesium/Zinc [Calcium-Magnesium-Zinc Tablet] 1 EACH Tablet) PO SCH (09:00)
[2020-09-18] MEDS ORDERED: NON FORMULARY DRUG (Ubidecarenone [Co Q-10] 100 MG Capsule) PO SCH (09:00)
[2020-09-18] MEDS ORDERED: ASPIRIN 325 MG TAB PO SCH (09:00)
[2020-09-18] MEDS ORDERED: ASPIRIN 325 MG TAB ONE (09:01)
[2020-09-18] MEDS ORDERED: ASPIRIN 325 MG TAB PO ONE (09:10)
[2020-09-18] MEDS ORDERED: IV FLUID CONTINUATION 950 ML IV ONE (09:10)
[2020-09-18] MEDS ORDERED: MIDAZOLAM 2 MG/2 ML VIAL IVP ONE (09:18)
[2020-09-18] MEDS ORDERED: fentaNYL (PF) 50 MCG/ML 2 ML AMP ONE (09:23)
[2020-09-18] MEDS ORDERED: LIDOCAINE 1% INJ 10MG/ML (20 ML MDV) SQ ONE (09:23)
[2020-09-18] MEDS ORDERED: fentaNYL (PF) 50 MCG/ML 2 ML AMP IVP ONE (09:24)
[2020-09-18] MEDS ORDERED: IOPAMIDOL-370 125ML BTL INJ ONE (09:38)
--- NOTE | 2020-09-18 09:39 | P.CRDCN ---
<Nandini Rocha - Last Filed: 09/18/20 09:28> History of Present Illness History of present illness: HISTORY OF PRESENTING ILLNESS This is a pleasant 50-year-old female past medical history significant for neurocardiogenic syncope and hypothyroidism. She follows in the office with Dr. Lee. We have been asked to see in consultation for chest pain. She states for the previous one month she has been having intermittent episodes of chest discomfort. She described the chest discomfort as a heavy pressure sensation in the left precordial region that radiates to the base of her neck, into the left shoulder and down the left arm. She states her arm intermittently feels numb and tingly as well. At times she has associated shortness of breath. The discomfort in her chest she feels is worse when she lays down. She did come to the ER initially on 09/11 and was ruled out and sent home to follow up. She saw Dr. Lee in the office yesterday and had an echocardiogram done revealing preserved LV systolic function with normal EF with hypokinesia involving the basal inferior wall. He sent her to the hospital for cathereization to be performed today. She is seen and examined sitting up in bed in no acute distress. She denies any symptoms of chest pain, shortness of breath, dizziness or palpitations. DIAGNOSTICS EKG reveals sinus mechanism heart rate is [address] or T wave abnormalities noted. Telemetry tracings indicate persistent sinus mechanism with no acute arrhythmias noted. Chest xray negative for an acute cardiopulmonary process. Laboratory reviewed, CBC unremarkable, sodium 138, potassium 3.7, creatinine 0.77, magnesium 2.0, cardiac enzymes negative 3, LDL 106 and HDL 67. Current cardiac medications include aspirin 81 mg daily. REVIEW OF SYSTEMS At the time of my exam: CONSTITUTIONAL: Denies fever or chills. CARDIOVASCULAR: Denies chest pain, shortness of breath, orthopnea, PND or palpitations. RESPIRATORY: Denies cough. GASTROINTESTINAL: Denies abdominal pain, diarrhea, constipation, nausea or vomiting. MUSCULOSKELETAL: Denies myalgias. NEUROLOGIC: Denies numbness, tingling or weakness. ENDOCRINE: Denies fatigue, weight change, polydipsia or polyurina. GENITOURINARY: Denies burning, hematuria or urgency with micturation. HEMATOLOGIC: Denies history of anemia or bleeding. PHYSICAL EXAMINATION Blood pressure 135/71 heart rate 70 afebrile and maintaining oxygen saturation on room air. CONSTITUTIONAL: No apparent distress. HEENT: Head is normocephalic. Pupils are equal, round. Sclerae anicteric. Mucous membranes of the mouth are moist. No JVD. No carotid bruit. CHEST EXAMINATION: Lungs are clear to auscultation. No chest wall tenderness is noted on palpation or with deep breathing. HEART EXAMINATION: Regular rate and rhythm. S1, S2 heard. No murmurs, gallops or rub. ABDOMEN: Soft, nontender. Positive bowel sounds. EXTREMITIES: 2+ peripheral pulses, no lower extremity edema and no calf tenderness. NEUROLOGIC EXAMINATION: Patient is awake, alert and oriented x3. ASSESSMENT Chest pain with wall motion abnormalities noted on echocardiogram performed in the office Dyslipidemia Hypothyroidism PLAN An acute coronary event has been ruled out. Recommend proceeding with cardiac catheterization as previously discussed in the office. I have discussed the risks, benefits and alternative therapies for the above-mentioned procedure and for both sedation/analgesia as well as necessary blood product administration, if indicated, as they pertain to this patient. The patient has indicated understanding and acceptance of the risks and proced ures discussed. Questions have been answered appropriately and she is agreeable to move forward with the above-stated procedure. Further recommendations to follow based upon clinical course. Thank you kindly for this consultation. Nurse Practitioner note has been reviewed, I agree with a documented findings and plan of care. Patient was seen and examined. Past Medical History Past Medical History: GI Bleed, Thyroid Disorder Additional Past Medical History / Comment(s): abdominal discomfort, IN NOV BOOD IN STOOL HAD A COLONOSCOPY PT STATED FOUND SOME DIVERTICUALR DISEASE,UTI,HYPOTHYROID History of Any Multi-Drug Resistant Organisms: None Reported Past Surgical History: Appendectomy, Cholecystectomy, Hysterectomy Additional Past Surgical History / Comment(s): colonoscopy Past Anesthesia/Blood Transfusion Reactions: Motion Sickness Past Psychological History: No Psychological Hx Reported Smoking Status: Former smoker Past Alcohol Use History: Rare Additional Past Alcohol Use History / Comment(s): smoked 10 years 1/2 ppd, quit 2006 Past Drug Use History: None Reported - Past Family History Mother Family Medical History: Cancer, CVA/TIA, Diabetes Mellitus, Hyperlipidemia, Hypertension Additional Family Medical History / Comment(s): 2 STROKES,CATARCTS,"IRREG HEART BEAT", "FEMALE CANCER" HAD TOTAL HYSTERECTOMY AGE 36 Father Family Medical History: Diabetes Mellitus, Hypertension, Myocardial Infarction ([place]) Medications and Allergies Home Medications Medication Instructions Recorded Confirmed Type Aspirin EC [Ecotrin] 325 mg PO HS PRN 09/17/20 09/17/20 History Ibuprofen [Motrin] 600 mg PO Q6H PRN 09/17/20 09/17/20 History Levothyroxine Sodium [Synthroid] 112 mcg PO DAILY 09/17/20 09/17/20 History Allergies Allergy/AdvReac Type Severity Reaction Status Date / Time Sulfa (Sulfonamide Allergy Swelling Verified 09/17/20 20:07 Antibiotics) Physical Exam Vitals: Vital Signs Temp Pulse Pulse Resp BP BP Pulse Ox 09/18/20 08:03 97.5 F L 70 16 135/71 98 09/18/20 03:35 98.1 F 78 16 122/78 98 09/17/20 22:50 97.9 F 72 16 115/79 98 09/17/20 19:27 98.4 F 68 18 132/84 96 09/17/20 17:38 98.0 F 79 16 153/92 98 Intake and Output 09/17/20 09/18/20 09/18/20 22:59 06:59 14:59 Intake Total 69.438 Balance 69.438 Intake: Intake, IV Titration 69.438 Amount Heparin Sod,Pork in 0.45% 69.438 NaCl 25,000 unit In 0.45 % NaCl 1 250ml.bag @ 12 UNITS/KG/HR 9.689 mls/hr IV .Q24H [facility] Rx#: [id number] Other: Voiding Method Toilet Toilet # Voids 1 1 Weight 80.739 kg Results 09/17/20 18:12 09/17/20 18:12 Cardiac Enzymes 09/17/20 09/17/20 09/17/20 Range/Units 18:12 18:12 21:23 AST 22 (14-36) U/L Troponin I <0.012 <0.012 (0.000-0.034) ng/mL 09/18/20 Range/Units 00:43 AST (14-36) U/L Troponin I <0.012 (0.000-0.034) ng/mL Coagulation 09/17/20 09/18/20 Range/Units 18:12 00:43 PT 10.0 (9.0-12.0) sec APTT 26.3 64.5 H (22.0-30.0) sec Lipids 09/18/20 Range/Units 00:43 Triglycerides 101 (<150) mg/dL Cholesterol 193 (<200) mg/dL HDL Cholesterol 67 H (40-60) mg/dL CBC 09/17/20 Range/Units 18:12 WBC 8.8 (3.8-10.6) k/uL RBC 4.69 (3.80-5.40) m/uL Hgb 14.8 (11.4-16.0) gm/dL Hct 44.0 (34.0-46.0) % Plt Count 351 (150-450) k/uL Comprehensive Metabolic Panel 09/17/20 Range/Units 18:12 Sodium 138 (137-145) mmol/L Potassium 3.7 (3.5-5.1) mmol/L Chloride 103 (98-107) mmol/L Carbon Dioxide 27 (22-30) mmol/L BUN 12 (7-17) mg/dL Creatinine 0.77 (0.52-1.04) mg/dL Glucose 145 H (74-99) mg/dL Calcium 10.0 (8.4-10.2) mg/dL AST 22 (14-36) U/L ALT 17 (4-34) U/L Alkaline Phosphatase 75 (38-126) U/L Total Protein 7.8 (6.3-8.2) g/dL Albumin 4.7 (3.5-5.0) g/dL Current Medications Generic Name Dose Route Start Last Admin Trade Name Freq PRN Reason Stop Dose Admin Aspirin 325 mg 09/18/20 09:00 Aspirin 325 Mg Tab PO DAILY JOHN Sodium Chloride 1,000 mls @ 100 mls/hr 09/17/20 18:45 09/18/20 06:45 Saline 0.9% IV 100 mls/hr .Q10H JOHN Administration Heparin Sodium/Sodium Chloride 250 mls @ 9.689 mls/hr 09/17/20 18:45 09/18/20 02:10 25,000 unit/ Sodium Chloride IV 12 units/kg/hr .Q24H JOHN 9.689 mls/hr Titration Protocol 12 UNITS/KG/HR Levothyroxine Sodium 125 mcg 09/18/20 06:30 09/18/20 06:45 Levothyroxine 125 Mcg Tab PO 125 mcg 0630 JOHN Administration Nitroglycerin 0.4 mg 09/17/20 18:34 Nitroglycerin Sl Tabs 0.4 Mg Tab SUBLINGUAL Q5M PRN Chest Pain Non-Formulary Medication 1 tab 09/18/20 09:00 Calcium/Magnesium/Zinc [Pcmzjnt-Xunlyjxju-Qqxu Tablet] PO DAILY JOHN Intake and Output 09/17/20 09/18/20 09/18/20 22:59 06:59 14:59 Intake Total 69.438 Balance 69.438 Intake: Intake, IV Titration 69.438 Amount Heparin Sod,Pork in 0.45% 69.438 NaCl 25,000 unit In 0.45 % NaCl 1 250ml.bag @ 12 UNITS/KG/HR 9.689 mls/hr IV .Q24H [facility] Rx#: [id number] Other: Voiding Method Toilet Toilet # Voids 1 1 Weight 80.739 kg 09/17/20 18:12 09/17/20 18:12 <Luis Fernando Palacios - Last Filed: 09/18/20 10:21> History of Present Illness History of present illness: Left heart catheterization shows normal coronary arteries. Possible musculoskeletal pain. Patient may be discharged from a cardiology standpoint with outpatient follow-up. Luis Fernando Palacios, DO Physical Exam Vitals: Vital Signs Temp Pulse Pulse Resp BP BP Pulse Ox 09/18/20 08:03 97.5 F L 70 16 135/71 98 09/18/20 03:35 98.1 F 78 16 122/78 98 09/17/20 22:50 97.9 F 72 16 115/79 98 09/17/20 19:27 98.4 F 68 18 132/84 96 09/17/20 17:38 98.0 F 79 16 153/92 98 Intake and Output 09/17/20 09/18/20 09/18/20 22:59 06:59 14:59 Intake Total 69.438 200 Balance 69.438 200 Intake: IV 200 Intake, IV Titration 69.438 Amount Heparin Sod,Pork in 0.45% 69.438 NaCl 25,000 unit In 0.45 % NaCl 1 250ml.bag @ 12 UNITS/KG/HR 9.689 mls/hr IV .Q24H [facility] Rx#: [id number] Other: Voiding Method Toilet Toilet Toilet # Voids 1 1 Weight 80.739 kg Results 09/17/20 18:12 09/17/20 18:12 Cardiac Enzymes 09/17/20 09/17/20 09/17/20 Range/Units 18:12 18:12 21:23 AST 22 (14-36) U/L Troponin I <0.012 <0.012 (0.000-0.034) ng/mL 09/18/20 Range/Units 00:43 AST (14-36) U/L Troponin I <0.012 (0.000-0.034) ng/mL Coagulation 09/17/20 09/18/20 Range/Units 18:12 00:43 PT 10.0 (9.0-12.0) sec APTT 26.3 64.5 H (22.0-30.0) sec Lipids 09/18/20 Range/Units 00:43 Triglycerides 101 (<150) mg/dL Cholesterol 193 (<200) mg/dL HDL Cholesterol 67 H (40-60) mg/dL CBC 09/17/20 Range/Units 18:12 WBC 8.8 (3.8-10.6) k/uL RBC 4.69 (3.80-5.40) m/uL Hgb 14.8 (11.4-16.0) gm/dL Hct 44.0 (34.0-46.0) % Plt Count 351 (150-450) k/uL Comprehensive Metabolic Panel 09/17/20 Range/Units 18:12 Sodium 138 (137-145) mmol/L Potassium 3.7 (3.5-5.1) mmol/L Chloride 103 (98-107) mmol/L Carbon Dioxide 27 (22-30) mmol/L BUN 12 (7-17) mg/dL Creatinine 0.77 (0.52-1.04) mg/dL Glucose 145 H (74-99) mg/dL Calcium 10.0 (8.4-10.2) mg/dL AST 22 (14-36) U/L ALT 17 (4-34) U/L Alkaline Phosphatase 75 (38-126) U/L Total Protein 7.8 (6.3-8.2) g/dL Albumin 4.7 (3.5-5.0) g/dL Current Medications Generic Name Dose Route Start Last Admin Trade Name Freq PRN Reason Stop Dose Admin Alprazolam 0.25 mg 09/18/20 08:24 Alprazolam 0.25 Mg Tab PO Q6HR PRN Mild Anxiety Alprazolam 0.5 mg 09/18/20 08:24 Alprazolam 0.5 Mg Tab PO Q6HR PRN Moderate Anxiety Aspirin 325 mg 09/18/20 09:00 Aspirin 325 Mg Tab PO DAILY JOHN Sodium Chloride 1,000 mls @ 100 mls/hr 09/17/20 18:45 09/18/20 06:45 Saline 0.9% IV 100 mls/hr .Q10H JOHN Administration Heparin Sodium/Sodium Chloride 250 mls @ 9.689 mls/hr 09/17/20 18:45 09/18/20 02:10 25,000 unit/ Sodium Chloride IV 12 units/kg/hr .Q24H JOHN 9.689 mls/hr Titration Protocol 12 UNITS/KG/HR Sodium Chloride 1,000 ml/ IV 1,000 mls @ 80.739 mls/hr 09/18/20 08:24 Solution IV 09/18/20 20:47 .[id number] ONE 1 ML/KG/HR Levothyroxine Sodium 125 mcg 09/18/20 06:30 09/18/20 06:45 Levothyroxine 125 Mcg Tab PO 125 mcg 0630 JOHN Administration Nitroglycerin 0.4 mg 09/17/20 18:34 Nitroglycerin Sl Tabs 0.4 Mg Tab SUBLINGUAL Q5M PRN Chest Pain Non-Formulary Medication 1 tab 09/18/20 09:00 Calcium/Magnesium/Zinc [Djbsjpn-Zzpwfxatj-Wjqc Tablet] PO DAILY JOHN Intake and Output 09/17/20 09/18/20 09/18/20 22:59 06:59 14:59 Intake Total 69.438 200 Balance 69.438 200 Intake: IV 200 Intake, IV Titration 69.438 Amount Heparin Sod,Pork in 0.45% 69.438 NaCl 25,000 unit In 0.45 % NaCl 1 250ml.bag @ 12 UNITS/KG/HR 9.689 mls/hr IV .Q24H [facility] Rx#: [id number] Other: Voiding Method Toilet Toilet Toilet # Voids 1 1 Weight 80.739 kg 09/17/20 18:12 09/17/20 18:12
[2020-09-18] MEDS ORDERED: RX INFO: IV CONTRAST WAS GIVEN 1 EACH MISC MISCELLANE PRN (10:30)
[2020-09-18] MEDS ORDERED: PANTOPRAZOLE 40 MG/10 ML VIAL IVP SCH (10:45)
[2020-09-18] MEDS ORDERED: LEVOTHYROXINE 112 MCG TAB PO SCH (10:45)
--- NOTE | 2020-09-18 10:49 | CC ---
CARDIAC CATHETERIZATION REPORT This is a 50-year-old lady who presented with symptoms of unstable angina and was sent to the hospital yesterday from my office. She was admitted, ruled out for myocardial infarction. She was advised to undergo cardiac catheterization. She understood risks, benefits and alternatives. PROCEDURE NOTE: After obtaining informed consent, left heart catheterization and coronary angiogram were performed via the right femoral artery using standard Meghan catheters. Patient tolerated the procedure well without any obvious immediate complications. A femoral angiogram was performed and Angio-Seal was deployed for hemostasis. The patient received moderate conscious sedation. Total sedation time was 13 minutes. FINDINGS: HEMODYNAMICS: Left ventricular end-diastolic pressure is 8 mm, there is a mean gradient across the aortic valve. LEFT VENTRICULOGRAM: Left ventriculogram was not performed. ANGIOGRAPHIC DATA: LEFT MAIN CORONARY ARTERY: The left main coronary artery is a normal-sized vessel and is free of stenosis. Divides into left anterior descending coronary artery and circumflex coronary artery. LAD and its branches, circumflex coronary artery and its branches are free of significant stenosis. Right coronary artery is a large dominant vessel and is free of significant disease. CONCLUSION: Normal coronary arteries, normal left ventricular end-diastolic pressure. PLAN: I reviewed angiographic data with the patient and told her that her chest discomfort is noncardiac in origin and it is possible that she has coronary vasospasm and I will treat her with Imdur 30 mg daily. The patient recently had a CT scan of the chest and that was negative for pulmonary embolism. MMODL / IJN: [id number] /
--- NOTE | 2020-09-18 10:49 | LTR ---
DATE OF SERVICE: 09/18/2020 RE: Marsha Lorenzo Dear Dr. Bajwa; I performed cardiac catheterization on Marsha Lorenzo, a detailed catheterization note is enclosed for your records. In brief, cardiac catheterization reveals normal coronary arteries. I believe patient's chest pain is noncardiac in origin. Thank you for giving me the privilege of participating in the care of this pleasant lady. Sincerely, MD ZOILA Calle / MARY: [id number] /
[2020-09-18] MEDS ORDERED: ACETAMINOPHEN TAB 500 MG TAB PO PRN (11:00)
[2020-09-18] MEDS ORDERED: PANTOPRAZOLE 40 MG TABLET PO SCH (11:15)
--- NOTE | 2020-09-18 14:09 | P.HPIM ---
History of Present Illness H&P Date: 09/18/20 History and Physical and Discharge Summary This is a 50-year-old female with history of hypothyroidism, GI bleed, diverticular disease, former nicotine dependence, syncope and multiple other medical issues presented to the ER with complaints of chest pain. Patient reports fluctuating chest heaviness radiating to left arm, left shoulder, left neck accompanied by shortness of breath, numbness, tingling at times, worsened by laying flat 1 month.Previously patient presented to the ER 09/11/20 with complaints of chest pain radiating left arm. Chest CT reported negative for PE and patient was discharged home. Follow up with cardiology yesterday, echo performed reporting normal LV function with basal inferior wall hypokinesia and was sent to the hospital for cardiac catheterization today. EKG reported normal sinus rhythm, troponins negative 3. Triglycerides 101, cholesterol 193, LDL 106, HDL 67. Hematology, coagulation and chemistry unremarkable. Chest x-ray. No acute cardiopulmonary process. Currently denies chest pain, palpitations or shortness of breath. Denies lightheadedness, dizziness or focal deficits. Review of Systems ROS Statement: Those systems with pertinent positive or pertinent negative responses have been documented in the HPI. ROS Other: All systems not noted in ROS Statement are negative. Past Medical History Past Medical History: GI Bleed, Thyroid Disorder Additional Past Medical History / Comment(s): abdominal discomfort, IN NOV BOOD IN STOOL HAD A COLONOSCOPY PT STATED FOUND SOME DIVERTICUALR DISEASE,UTI,HYPOTHYROID History of Any Multi-Drug Resistant Organisms: None Reported Past Surgical History: Appendectomy, Cholecystectomy, Hysterectomy Additional Past Surgical History / Comment(s): colonoscopy Past Anesthesia/Blood Transfusion Reactions: Motion Sickness Past Psychological History: No Psychological Hx Reported Smoking Status: Former smoker Past Alcohol Use History: Rare Additional Past Alcohol Use History / Comment(s): smoked 10 years 1/2 ppd, quit 2006 Past Drug Use History: None Reported - Past Family History Mother Family Medical History: Cancer, CVA/TIA, Diabetes Mellitus, Hyperlipidemia, Hypertension Additional Family Medical History / Comment(s): 2 STROKES,CATARCTS,"IRREG HEART BEAT", "FEMALE CANCER" HAD TOTAL HYSTERECTOMY AGE 36 Father Family Medical History: Diabetes Mellitus, Hypertension, Myocardial Infarction ([place]) Medications and Allergies Home Medications Medication Instructions Recorded Confirmed Type Aspirin EC [Ecotrin] 325 mg PO HS PRN 09/17/20 09/17/20 History Ibuprofen [Motrin] 600 mg PO Q6H PRN 09/17/20 09/17/20 History Levothyroxine Sodium [Synthroid] 112 mcg PO DAILY 09/17/20 09/17/20 History Isosorbide Mononitrate ER [Imdur] 30 mg PO DAILY #90 tab 09/18/20 Rx Allergies Allergy/AdvReac Type Severity Reaction Status Date / Time Sulfa (Sulfonamide Allergy Swelling Verified 09/17/20 20:07 Antibiotics) Physical Exam Vitals: Vital Signs Temp Pulse Pulse Resp BP BP Pulse Ox 09/18/20 10:30 16 130/79 100 09/18/20 10:15 16 130/67 97 09/18/20 10:00 16 120/79 99 09/18/20 08:03 97.5 F L 70 16 135/71 98 09/18/20 03:35 98.1 F 78 16 122/78 98 09/17/20 22:50 97.9 F 72 16 115/79 98 09/17/20 19:27 98.4 F 68 18 132/84 96 09/17/20 17:38 98.0 F 79 16 153/92 98 Intake and Output 09/17/20 09/18/20 09/18/20 22:59 06:59 14:59 Intake Total 69.438 200 Balance 69.438 200 Intake: IV 200 Intake, IV Titration 69.438 Amount Heparin Sod,Pork in 0.45% 69.438 NaCl 25,000 unit In 0.45 % NaCl 1 250ml.bag @ 12 UNITS/KG/HR 9.689 mls/hr IV .Q24H [facility] Rx#: [id number] Other: Voiding Method Toilet Toilet Toilet # Voids 1 1 Weight 80.739 kg PHYSICAL EXAM: VITAL SIGNS: As above GENERAL: Sitting up in bed, no acute distress HEENT: Conjunctivae normal. eyes normal. NECK: No JVD. No thyroid enlargement. No LNs CARDIOVASCULAR: S1, S2 regular.No murmur RESPIRATION: Breath sounds diminished in the bases. No rhonchi or crackles. No bronchial breathing. ABDOMEN: Soft, nontender . No guarding. no masses palpable. No ascites, No hepatosplenomegaly.Bowel sounds heard. LEGS: No edema. no swelling. No calf tenderness, positive DP pulses. PSYCHIATRY: Alert and oriented X3, mood and affect normal. NERVOUS SYSTEM: Cranial N 2-12 grossly normal. Moves all 4 limbs. No focal deficits. Strength and sensation grossly intact.. Skin: Warm and dry, no rash Joints: No active swelling. No inflammation. Lymphatic system. No LN neck axilla. Results CBC & Chem 7: 09/17/20 18:12 09/17/20 18:12 Labs: Abnormal Lab Results - Last 24 Hours (Table) 09/17/20 09/18/20 09/18/20 Range/Units 18:12 00:43 00:43 APTT 64.5 H (22.0-30.0) sec Glucose 145 H (74-99) mg/dL LDL Cholesterol, Calc 106 H (0-99) mg/dL HDL Cholesterol 67 H (40-60) mg/dL Thrombosis Risk Factor Assmnt - Choose All That Apply Each Factor Represents 1 point: Age 41-60 years, Obesity (BMI >25) Each Risk Factor Represents 3 Points: Family history of DVT/PE Thrombosis Risk Factor Assessment Total Risk Factor Score: 5 Thrombosis Risk Factor Assessment Level: High Risk Assessment and Plan Assessment: Acute chest pain, possibly muscloskeletal, possibly coronary vasospasm ,status post cardiac catheterization reportedly normal coronary arteries, normal LV and diastolic pressure Family history of CAD Possible polymyalgia of left shoulder, sed rate pending Hypothyroidism Dyslipidemia Former nicotine dependence Plan: Continue on current medication regime ,monitoring and symptomatic treatment. Patient has just completed left heart catheterization reporting normal coronary arteries. Possible coronary vasospasm and Imdur has been added to med regimen. Patient has been cleared by cardiology for discharge later this afternoon. Sed rate pending. Patient will be discharged home in a stable condition with guarded prognosis. The impression and plan of care has been dictated as directed. : I performed a history and examination of this patient, discussed the same with the dictator. I agree with the dictator's note ,documented as a scribe. Any additional findings or plans will be noted.
[2020-09-18 15:09] VITALS: BP 110/74; TEMP 97.8
== END 2020-09-18 17:40 ==
LOC: EC 17:34 → 1SOBS 18:34
PROVIDERS: ADMIT Family Medicine; ATTEND Family Medicine
DX: R07.89 Other chest pain (principal); R07.2 Precordial pain; R20.0 Anesthesia of skin; R20.2 Paresthesia of skin; R06.02 Shortness of breath; E78.5 Hyperlipidemia, unspecified; E66.9 Obesity, unspecified; Z68.30 Body mass index [BMI] 30.0-30.9, adult; E03.9 Hypothyroidism, unspecified; R55 Syncope and collapse; Z90.49 Acquired absence of other specified parts of digestive tract; Z90.710 Acquired absence of both cervix and uterus; Z79.82 Long term (current) use of aspirin; Z79.890 Hormone replacement therapy; Z79.899 Other long term (current) drug therapy; Z79.1 Long term (current) use of non-steroidal anti-inflammatories (NSAID); Z88.2 Allergy status to sulfonamides; Z87.19 Personal history of other diseases of the digestive system; Z87.891 Personal history of nicotine dependence; Z83.3 Family history of diabetes mellitus; Z82.49 Family history of ischemic heart disease and other diseases of the circulatory system; Z82.3 Family history of stroke; Z80.8 Family history of malignant neoplasm of other organs or systems; Z83.518 Family history of other specified eye disorder
CPT/HCPCS: 96366 ×2; 96376; 96365; 99285; 36415; 93005; 93458; 80061; 80053; 85652; 82550; 83735; 84484 ×2; 85025; 85610; 85730 ×2; 71046; G0378 ×2; C1769 ×2; C1760; J2250; J1644 ×2; J2001; J3010; Q9967

== ENCOUNTER → 2020-09-17 | Outpatient (CLI) | payer BC ==
[2020-09-17 13:47] LABS: Chol/HDL Ratio 2.99; LDL Cholesterol,Calculated 117.2 mg/dL (0.0-131.0); VLDL Calculation 17.8 mg/dL (5.00-40.00)
== END | disposition home or self-care (01) ==
LOC: LABWHC1 07:28
PROVIDERS: ATTEND Internal Medicine Cardiovascular Disease
DX: E78.2 Mixed hyperlipidemia (principal)
CPT/HCPCS: 36415; 80061; 84450; 84460

== ENCOUNTER → 2020-09-17 | Outpatient (CLI) | payer BC | END | disposition home or self-care (01) | LOC: LABWHC1 13:01 | PROVIDERS: ATTEND Family Medicine | DX: R07.1 Chest pain on breathing (principal) | CPT/HCPCS: 36415; 85379 ==

== ENCOUNTER → 2020-09-17 | Outpatient (CLI) | payer BC ==
--- NOTE | 2020-09-17 13:03 | US ---
EXAMINATION TYPE: US venous doppler duplex UE LT DATE OF EXAM: 09/17/2020 COMPARISON: NONE CLINICAL HISTORY: M79.662, M79.622 pain in left upper and lower. Pain left arm SIDE PERFORMED: Left Left Arm: Negative for DVT Results called to Shirley at 's office at time of exam IMPRESSION: 1. Left upper extremity ultrasound negative for deep venous thrombosis.
--- NOTE | 2020-09-17 13:05 | US ---
EXAMINATION TYPE: US venous doppler duplex LE LT DATE OF EXAM: 09/17/2020 12:35 PM COMPARISON: NONE CLINICAL HISTORY: M79.662, M79.622 pain in left upper and lower. Pain behind left knee/ No known prio r DVT SIDE PERFORMED: Left TECHNIQUE: The lower extremity deep venous system is examined utilizing real time linear array sonog deborah with graded compression, doppler sonography and color-flow sonography. VESSELS IMAGED: Common Femoral Vein Deep Femoral Vein Greater Saphenous Vein * Femoral Vein Popliteal Vein Small Saphenous Vein * Proximal Calf Veins (* superficial vessels) Left Leg: Negative for DVT Results called to Shirley at Dr's office at time of exam IMPRESSION: 1. Left lower extremity ultrasound negative for deep venous thrombosis.
== END | disposition home or self-care (01) ==
LOC: RADUSWWP 12:18
PROVIDERS: ATTEND Family Medicine
DX: M79.662 Pain in left lower leg (principal); M79.622 Pain in left upper arm; Z88.2 Allergy status to sulfonamides

== ENCOUNTER → 2022-03-18 | Outpatient (CLI) | payer BC ==
--- NOTE | 2022-03-18 08:33 | CT ---
EXAMINATION TYPE: CT brain wo con DATE OF EXAM: 03/18/2022 COMPARISON: CT dated 10/01/2017 HISTORY: Malignant melanoma, dizziness CT DLP: 1072.3 mGycm Automated exposure control for dose reduction was used. TECHNIQUE: CT scan of the brain is performed without IV contrast administration. FINDINGS: No acute intracranial hemorrhage. No gross acute cortical infarct. No midline shift, herniation or ve ntriculomegaly. Unremarkable gomez-white matter differentiation, basal cisterns, sella and CP angles. No gross space-o ccupying lesion, vasogenic edema or mass effect. Unremarkable orbits. Clear visualized paranasal sinuses and mastoid air cells. Unremarkable calvarial bones. IMPRESSION: No acute intracranial abnormality or gross space-occupying lesion by this nonenhanced CT scan. Please note that subtle intracranial metastatic disease cannot be excluded by this unenhanced CT scan . Further MRI assessment can be considered if clinically required.
== END | disposition home or self-care (01) ==
LOC: RADCTMAIN 06:32
PROVIDERS: ATTEND Family Medicine
DX: Z85.820 Personal history of malignant melanoma of skin (principal); R42 Dizziness and giddiness; R51.9 Headache, unspecified
CPT/HCPCS: 70450

== ENCOUNTER → 2023-03-17 | Outpatient (CLI) | payer BC ==
--- NOTE | 2023-03-17 08:24 | CT ---
EXAMINATION TYPE: CT lumbar spine wo con DATE OF EXAM: 03/17/2023 7:45 AM COMPARISON: None HISTORY: Bilateral hip and low back pain. CT DLP: 672.5 mGycm Automated exposure control for dose reduction was used. Unenhanced CT of the lumbar spine was performed. Bone and soft tissue window settings are submitted as well as coronal and sagittal reconstructions. L1-L2: Normal disc space height. No disc herniation protrusion or central stenosis. No facet joint arthropathy. No evidence for foraminal encroachment. L2-L3: Normal disc space height. No disc herniation protrusion or central stenosis. No facet joint arthropathy. No evidence for foraminal encroachment. L3-L4: Normal disc space height. No disc herniation protrusion or central stenosis. No facet joint arthropathy. No evidence for foraminal encroachment. L4-L5: Mild degenerative disc space narrowing with mild posterior disc bulge. Minimal effacement of v entral thecal sac. Ventral spondylosis. No judson central stenosis. Foramina are patent. L5-S1: Moderate degenerative disc space narrowing. Posterior disc bulge greatest paracentrally to the left where there appears to be left lateral recess stenosis. Neural foramina are patent. There is no evidence of fracture or malalignment. IMPRESSION: 1. Degenerative disc space narrowing L4-5 and L5-S1 as discussed. Left paracentral disc bulge L5-S1 w ith left lateral recess stenosis.
--- NOTE | 2023-03-17 08:28 | CT ---
EXAMINATION TYPE: CT hip RT wo con, CT hip LT wo con DATE OF EXAM: 03/17/2023 COMPARISON: None HISTORY: Bilateral hip and low back pain. CT DLP: 877.2 (accession [id number]), 986.1 (accession [id number]) mGycm Automated exposure control for dose reduction was used. Unenhanced CT of the bilateral hips was performed in the axial, sagittal and coronal planes with bone and soft tissue window settings are reviewed. FINDINGS: Right hip: Mild degenerative joint space narrowing. No evidence for fracture or dislocation. No osseo us lesion. No evidence for femoral acetabular impingement. No soft tissue mass evident. Left hip:Mild degenerative joint space narrowing. No evidence for fracture or dislocation. No osseous lesion. No evidence for femoral acetabular impingement. No soft tissue mass evident. IMPRESSION: MILD DEGENERATIVE JOINT SPACE NARROWING BILATERALLY. OTHERWISE UNREMARKABLE STUDY.
== END | disposition home or self-care (01) ==
LOC: RADCTMAIN 06:56
PROVIDERS: ATTEND Family Medicine
DX: M25.552 Pain in left hip (principal); M51.37 Other intervertebral disc degeneration, lumbosacral region; M48.061 Spinal stenosis, lumbar region without neurogenic claudication
CPT/HCPCS: 72131

== ENCOUNTER → 2024-10-18 | Outpatient (CLI) | payer BC ==
--- NOTE | 2024-10-18 15:48 | CT ---
EXAMINATION TYPE: CT abdomen pelvis wo con DATE OF EXAM: 10/18/2024 COMPARISON: 03/04/2018 CLINICAL INDICATION: Female, 54 years old with history of R10.9 ABD PAIN R19.4 CHANGE IN BOWEL HABIT R11.0; PHH, c/o abdominal pain, cramping, bloating, nausea, diarrhea. TECHNIQUE: CT scan of the abdomen and pelvis is performed without oral or IV contrast. CT DLP: 451.[address] CTDI: mGy Automated exposure control for dose reduction was used. FINDINGS: Within the limitations of a non-contrast study, the following observations are made. The lungs are clear. There is surgical absence of the gallbladder. There is no biliary ductal dilatation. There is no organomegaly of the liver, pancreas, spleen or adrenal glands. There are no renal calcifications or hydronephrosis. The caliber of the abdominal aorta is normal and there is no retroperitoneal adenopathy or hemorrhage . The bowel loops are normal in caliber is no evidence of obstruction. No inflammatory changes are iden tified in the mesentery and there is no free intraperitoneal air or fluid. There is no pelvic mass, free fluid, abscess or adenopathy. 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 The osseous structures and soft tissues are unremarkable. IMPRESSION: No acute changes within the abdomen or pelvis. No significant abnormality seen. [facility], Workstation: [id number] 10/18/2024 3:46 PM
== END | disposition home or self-care (01) ==
LOC: RADCTMAIN 14:59
PROVIDERS: ATTEND Family Medicine
DX: R10.9 Unspecified abdominal pain (principal); R19.4 Change in bowel habit; R11.0 Nausea; R19.7 Diarrhea, unspecified
CPT/HCPCS: 74176